=== PATIENT | male | born 1945 | race Caucasian/White ===

== ENCOUNTER 2023-06-20 14:35 | Outpatient (AMB) | payer MEDICARE, SELFPAY ==
--- NOTE | 2023-06-20 14:47 | HO.NEPHOV ---
HPI HPI Comments History of Present Illness Details I had the privilege of seeing Joe in follow-up of his CKD on a backdrop of diabetes mellitus, hypertension vascular disease. He has not lost a significant amount of weight. He claims to have good blood sugar control. His blood pressure has been at goal. He is on Jardiance among other medications which he is tolerating well. He has no orthostatic symptoms. He denies any chest pain, shortness of breath, proximal nocturnal dyspnea, pedal edema or urinary symptoms. He tries to maintain good hydration. He is avoiding nonsteroidal anti-inflammatories. He did not have any specific complaints at the time of this office visit. REPLACED BY [facility] Medical History (Updated 06/23/23 @ 07:29 by Hernan Mehta MD) Sleep apnea Diabetes mellitus Hypertension Surgical History (Updated 06/20/23 @ 15:00 by Jeannine Salazar MA) Hx of appendectomy Hx of CABG H/O shoulder replacement History of back surgery History of knee replacement Family History (Updated 06/20/23 @ 15:02 by Jeannine Salazar MA) Mother Cancer Paternal Grandfather Heart disease Maternal Grandfather Heart disease Brother Hx of CABG Social History (Updated 06/20/23 @ 15:02 by Jeannine Salazar MA) Alcohol intake: never Patient Tobacco Use Status: Never used Tobacco Vital Signs 06/20/23 14:50 Height 5 ft 7 in Weight 218 lb BMI 34.1 BP 102/54 L Blood Pressure Location Lt brachial Position Sitting Pulse 61 Pulse Source Pulse Oximeter Physical Exam Vital Signs: Last Vital Signs Pulse 61 06/20/23 14:50 BP 102/54 L 06/20/23 14:50 BMI result Body Mass Index 34.1 Const General: comfortable and no acute distress Orientation/consciousness: patient oriented x3 HEENT Head: Yes normocephalic Mouth: Normal oral and palatal mucosa present Eyes EOM: EOMs intact bilaterally Neck Neck: Yes supple Resp Auscultation: clear to auscultation bilaterally Cardio Jugular venous distension: no JVD Rate: regular rate GI Palpation (GI): Soft to palpation Auscultation: normal bowel sounds General: Yes no CVA tenderness Back/Spine/Pelvis Back: no CVA tenderness Skin General skin exam: no rashes or lesions noted Neuro General: patient oriented x3 and moves all extremities Extrem General: Yes no pedal edema Assessment & Plan Assessment & Plan (1) CKD (chronic kidney disease) stage 3, GFR 30-59 ml/min: Code(s): N18.30 - Chronic kidney disease, stage 3 unspecified Qualifiers: Chronic kidney disease stage 3 subtype: stage 3a (GFR 45-59) Qualified Code(s): N18.31 - Chronic kidney disease, stage 3a Plan Joe has stage III CKD at baseline. His renal functions are currently stable. His blood pressure is at goal. His blood sugar is better controlled. He is on Jardiance which is tolerating well. He has no orthostatic symptoms on lisinopril. He is tolerating statins. He maintains good hydration. He needs to lose some weight. He should avoid nonsteroidals. I did not make any medication changes today. Follow-up blood work and urine studies ordered. Follow-up appointment given. No medications refilled today. Answered all questions. Orders: Orders Blood Urea Nitrogen 06/20/23 N18.30 - Chronic kidney disease, stage 3 unspecified Electrolytes 06/20/23 N18.30 - Chronic kidney disease, stage 3 unspecified Creatinine 06/20/23 N18.30 - Chronic kidney disease, stage 3 unspecified Protein Creatinine Ratio, Ur 06/20/23 N18.30 - Chronic kidney disease, stage 3 unspecified Coding Level of Care Code Est Pt Level 3 (30469) Diagnoses Stage 3a chronic kidney disease N18.31 Chronic kidney disease stage 3 subtype: stage 3a (GFR 45-59) Results Reviewed Nephrology Results: No Data to Display
[2023-06-20 14:50] VITALS: BP 102/54; PULSE 61; BMI 34.1
== END 2023-06-20 15:41 | disposition home or self-care (01) ==
PROVIDERS: Visit Provider Internal Medicine Nephrology
DX: N18.31 Chronic kidney disease, stage 3a (principal)
CPT/HCPCS: 99213

== ENCOUNTER → 2023-06-20 14:35 | Outpatient (BNVA) | payer MEDICARE, SELFPAY | PROVIDERS: Visit Provider Internal Medicine Nephrology | DX: N18.31 Chronic kidney disease, stage 3a (principal) | CPT/HCPCS: 99212 ==

== ENCOUNTER 2024-02-20 15:21 | Outpatient (AMB) | payer MEDICARE, SELFPAY ==
--- NOTE | 2024-02-20 15:40 | HO.NEPHOV_ITS ---
Vital Signs 02/20/24 15:41 Height 5 ft 7 in Weight 219 lb BMI 34.3 BP 122/68 Blood Pressure Location Rt brachial Position Sitting Pulse 65 Pulse Source Pulse Oximeter Pulse Oximetry (%) 96 Oxygen Delivery Method Room Air Intake Visit Reasons: 8 Months/ Conf Industrial Custodian Required: No Accompanied by: Self / Same As Patient Allergies latex Allergy (Verified 02/20/24 15:44) Unknown Nbfhysw-KIN-OdR Reductase Inhibitor Allergy (Verified 02/20/24 15:44) Unknown Sulfa (Sulfonamide Antibiotics) Allergy (Verified 02/20/24 15:44) Unknown HPI Comments Details: I had the privilege of seeing Joe in follow-up of his CKD on a backdrop of diabetes mellitus, hypertension vascular disease. He has not lost a significant amount of weight. He has had an AICD done recently. He claims to have good blood sugar control. His blood pressure has been at goal. He is on Jardiance among other medications which he is tolerating well. He has no orthostatic symptoms. He denies any chest pain, shortness of breath, proximal nocturnal dyspnea, pedal edema or urinary symptoms. He tries to maintain good hydration. He is avoiding nonsteroidal anti-inflammatories. He did not have any specific complaints at the time of this office visit. [facility] Medical History (Updated 06/23/23 @ 07:29 by Hernan Mehta MD) Sleep apnea Diabetes mellitus Hypertension Surgical History Hx of appendectomy Hx of CABG H/O shoulder replacement History of back surgery History of knee replacement Family History Mother Cancer Paternal Grandfather Heart disease Maternal Grandfather Heart disease Brother Hx of CABG Social History Alcohol intake: never Patient Tobacco Use Status: Never used Tobacco Review of Systems Const All systems reviewed & are unremarkable except as noted in HPI and below Physical Exam Vital Signs: Last Vital Signs Pulse 65 02/20/24 15:41 BP 122/68 02/20/24 15:41 Pulse Ox 96 02/20/24 15:41 Oxygen Delivery Method Room Air 02/20/24 15:41 BMI result Body Mass Index 34.3 Const General: comfortable and no acute distress Orientation/consciousness: patient oriented x3 HEENT Head: Yes normocephalic Mouth: Normal oral and palatal mucosa present Eyes EOM: EOMs intact bilaterally Neck Neck: Yes supple Resp Auscultation: clear to auscultation bilaterally Cardio Jugular venous distension: no JVD Rate: regular rate GI Palpation (GI): Soft to palpation Auscultation: normal bowel sounds General: Yes no CVA tenderness Back/Spine/Pelvis Back: no CVA tenderness Skin General skin exam: no rashes or lesions noted Neuro General: patient oriented x3 and moves all extremities Extrem General: Yes no pedal edema Results Reviewed Nephrology Results: No Data to Display Assessment & Plan Assessment & Plan (1) CKD (chronic kidney disease) stage 3, GFR 30-59 ml/min: Code(s): N18.30 - Chronic kidney disease, stage 3 unspecified Category: Medical Qualifiers: Chronic kidney disease stage 3 subtype: stage 3a (GFR 45-59) Qualified Code(s): N18.31 - Chronic kidney disease, stage 3a Plan Joe has stage III CKD at baseline. His renal functions are currently stable. His blood pressure is at goal. His blood sugar is better controlled. He is on Jardiance which is tolerating well. He has no orthostatic symptoms on lisinopril. He is tolerating statins. He maintains good hydration. He needs to lose some weight. He should avoid nonsteroidals. I did not make any medication changes today. Follow-up blood work and urine studies ordered. Follow-up appointment given. No medications refilled today. Answered all questions. Orders: Orders Creatinine Today N18.31 - Chronic kidney disease, stage 3a Blood Urea Nitrogen Today N18.31 - Chronic kidney disease, stage 3a Calcium Today N18.31 - Chronic kidney disease, stage 3a Protein Creatinine Ratio, Ur Today N18.31 - Chronic kidney disease, stage 3a Electrolytes Today N18.31 - Chronic kidney disease, stage 3a Coding Level of Care Code Est Pt Level 4 (95066) Diagnoses Stage 3a chronic kidney disease N18.31 Chronic kidney disease stage 3 subtype: stage 3a (GFR 45-59)
[2024-02-20 15:41] VITALS: BP 122/68; PULSE 65; O2SAT 96; BMI 34.3
== END 2024-02-20 16:09 | disposition home or self-care (01) ==
PROVIDERS: PCP Internal Medicine; Visit Provider Internal Medicine Nephrology
DX: N18.31 Chronic kidney disease, stage 3a (principal)
CPT/HCPCS: 99214

== ENCOUNTER → 2024-02-20 15:21 | Outpatient (BNVA) | payer MEDICARE, SELFPAY | PROVIDERS: PCP Internal Medicine; Visit Provider Internal Medicine Nephrology | DX: E11.22 Type 2 diabetes mellitus with diabetic chronic kidney disease (principal); I12.9 Hypertensive chronic kidney disease with stage 1 through stage 4 chronic kidney disease, or unspecified chronic kidney disease; N18.31 Chronic kidney disease, stage 3a | CPT/HCPCS: 99212 ==

== ENCOUNTER 2025-03-09 10:14 | Outpatient (AMB) | payer MEDICARE, SELFPAY ==
--- OUTSIDE RECORDS SUMMARY | 2025-03-09 06:44 | XMS_ITS | Continuity of Care Document ---
Author Name [facility] Organization [facility] Care Team Providers Care All Around Patternmaker Name Role Phone [facility] Unavailable Unavailable Problems Combined list of problems from Department of Defense and Veterans Affairs facilities. It does not include entries that were removed or entered in error. 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 [facility] Coronary arteriosclerosis Active Condition [facility] Diabetes mellitus type 2 Active Condition [facility] Exposure to potentially hazardous substance Active Condition [facility] Hyperlipidemia Active Condition [facility] Hypertension Active Condition [facility] Hypothyroidism Active Condition [facility] 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 [facility] Obesity (SCT [id number]) Active Condition [facility] 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 [facility] Diagnosis: ICD-10-CM Z02.89 Encounter for other administrative examinations Active Diagnosis RAYMUNDO SCraig KRYSTINA [facility] Diagnosis: ICD-10-CM C91.A1 Mature B-cell leukemia Burkitt-type, in remission Active Diagnosis [facility] Diagnosis: ICD-10-CM I25.9 Chronic ischemic heart disease, unspecified Active Diagnosis [place] [place] [facility] Diagnosis: ICD-10-CM I25.10 Athscl heart disease of zuni coronary artery w/o ang pctrs Active Diagnosis [facility] Diagnosis: ICD-10-CM E11.9 Type 2 diabetes mellitus without complications Active Diagnosis [facility] Diagnosis: ICD-10-CM E11.42 Type 2 diabetes mellitus with diabetic polyneuropathy Active Diagnosis [facility] Medications Combined list of outpatient medications from Department of Defense and Veterans Affairs facilities.Medications provided include 1) outpatient medications from the last 15 months, and 2) patient-reported medications. Medication Details Route Status Patient Instructions Prescription Expires Prescription Number Last Dispense Date Ordering Provider Order Date Order Qty Source ALBUTEROL 90MCG/ACTUA T (CFC-F) INHL,ORAL,8 .5GM DOSE COUNTER INHALE 2 PUFFS BY MOUTH EVERY 4 HOURS NEEDED RESPIR ATORY (INHAL ATION) ACTIVE ROBLES,D MICHELLE HCOWDHURY 2024 [facility] ASCORBIC ACID 500MG TAB TAKE ONE TABLET BY MOUTH ONCE DAILY ORAL ACTIVE ROBLES,D MICHELLE CHOWDHURY 2023 [facility] CARVEDILOL 12.5MG TAB TAKE ONE TABLET BY MOUTH TWICE DAILY ORAL ACTIVE [place]UEL [place] 2020 [facility] CETIRIZINE HCL 10MG TAB TAKE ONE TABLET BY MOUTH ONCE DAILY ORAL ACTIVE ROBLES,D MICHELLE CHOWDHURY 2024 [facility] CHOLECALCIF STUART 25MCG (1,000UNIT) TAB TAKE ONE TABLET BY MOUTH ONCE DAILY ORAL ACTIVE ROBLES,D MICHELLE CHOWDHURY 2024 [facility] DAPAGLIFLOZ IN 10MG TAB TAKE ONE TABLET BY MOUTH EVERY MORNING ORAL ACTIVE ROBLESD MICHELLE CHOWDHURY 2024 [facility] DICYCLOMINE HCL 20MG TAB TAKE ONE TABLET BY MOUTH ONCE DAILY ORAL ACTIVE ROBLES,D MICHELLE CHOWDHURY 2024 [facility] DUTASTERIDE 0.5MG CAP TAKE 1 CAPSULE BY MOUTH ONCE DAILY ORAL ACTIVE ROBLES,D MICHELLE CHOWDHURY 2024 [facility] FERROUS SO4 325MG TAB TAKE ONE TABLET BY MOUTH ONCE DAILY ORAL ACTIVE ROBLESD MICHELLE CHOWDHURY 2023 [facility] FLUTICASONE 100MCG/ROSALEE NTEROL 25MCG INHL,ORAL,3 0D INHALE 1 PUFF BY MOUTH ONCE DAILY RESPIR ATORY (INHAL ATION) ACTIVE ROBLES,D MICHELLE CHOWDHURY 2024 [facility] FLUTICASONE PROPIONATE 50MCG/SPRAY SOLN,NASAL, 16GM INSTILL 2 SPRAYS INTO EACH NOSTRIL ONCE DAILY NASAL ACTIVE STEENBERG EN,MANUEL A 2020 [facility] FUROSEMIDE 20MG TAB TAKE ONE TABLET BY MOUTH NEEDED ORAL ACTIVE STEENBERG EN,MANUEL A 2020 [facility] LEVOTHYROXI NE NA 175MCG TAB (SYNTHROID) TAKE ONE TABLET BY MOUTH ONCE DAILY ORAL ACTIVE STEENBERG EN,MANUEL A 2020 [facility] LISINOPRIL 10MG TAB TAKE ONE TABLET BY MOUTH ONCE DAILY ORAL ACTIVE ROBLES,D MICHELLE CHOWDHURY 2024 [facility] MELATONIN 5MG CAP/TAB TAKE ONE CAPSULE/ TABLET BY MOUTH ONCE DAILY ORAL ACTIVE STEENBERG EN,MANUEL A 2020 [facility] METFORMIN HCL 1000MG TAB TAKE ONE TABLET BY MOUTH TWICE DAILY ORAL ACTIVE STEENBERG EN,MANUEL A 2020 [facility] RIVAROXABAN 20MG TAB TAKE ONE TABLET BY MOUTH ONCE DAILY ORAL ACTIVE STEENBERG EN,MANUEL A 2020 [facility] ROSUVASTATI N CA 20MG TAB TAKE ONE-HALF TABLET BY MOUTH ONCE DAILY ORAL ACTIVE ROBLES,D MICHELLE CHOWDHURY 2024 [facility] TAMSULOSIN HCL 0.4MG CAP TAKE 1 CAPSULE BY MOUTH EVERY 24 HOURS ORAL ACTIVE STEENBERG EN,MANUEL A 2020 [facility] VITAMIN B COMPLEX CAP TAKE 1 CAPSULE BY MOUTH ONCE DAILY ORAL ACTIVE STEENBERG EN,MANUEL A 2020 [facility] Allergies, Adverse Reactions, Alerts Combined list of allergies from Department of Defense and Veterans Affairs facilities. It does not include entries that were removed or entered in error. Substance Category Reaction Severity Reaction type Status Date Reported Comments Source [place] Propensity to adverse reactions to drug (finding) active 1 [facility] [place] MORPHINE Propensity to adverse reactions to drug (finding) active 1 [facility] Propensity to adverse reactions to drug (finding) active [facility] Immunizations Combined list of available immunizations from the Department of Defense and Veterans Affairs facilities. Immunization Series Date Given Administered By Site Reaction Lot Number CVX Code Drug Feather Mixer Status Comments Source COVID-19 (MODERNA), MRNA, LNP-S, PF, 50 MCG/0.5 ML (AGES 12+ YEARS) 2024 312 complet ed HISTORICA L INFORMATI ON - FROM OTHER PROVIDER, [facility] INFLUENZA, UNSPECIFIED FORMULATION 2023 88 complet ed HISTORICA L INFORMATI ON - FROM PATIENT'S RECALL, [facility] COVID-19 (PFIZER), MRNA, LNP-S, PF, BRITTNY-SUCROSE, 30 MCG/0.3 ML (AGES 12+ YEARS) 2023 309 complet ed HISTORICA L INFORMATI ON - FROM OTHER PROVIDER, [facility] COVID-19 (MODERNA), MRNA, LNP-S, PF, 50 MCG/0.5 ML (AGES 12+ YEARS) 2023 312 complet ed HISTORICA L INFORMATI ON - FROM OTHER PROVIDER, [facility] RSV, BIVALENT, PROTEIN SUBUNIT RSVPREF, DILUENT RECONSTITUTED , 0.5 ML, PF 2022 305 complet ed HISTORICA L INFORMATI ON - FROM OTHER PROVIDER, [facility] ZOSTER RECOMBINANT 1 2021 187 complet ed HISTORICA L INFORMATI ON - FROM OTHER REGISTRY, [facility] COVID-19 (MODERNA), MRNA, LNP-S, BIVALENT BOOSTER, PF, 50 MCG/0.5 ML OR 25MCG/0.25 ML DOSE 2021 229 complet ed Booster for Series, HISTORICA L INFORMATI ON - FROM OTHER REGISTRY, [facility] INFLUENZA, UNSPECIFIED FORMULATION 2021 88 complet ed Booster for Series, HISTORICA L INFORMATI ON - FROM OTHER REGISTRY, [facility] COVID-19 (MODERNA), MRNA, LNP-S, PF, 100 MCG/0.5ML DOSE OR 50 MCG/0.25ML DOSE 2021 207 complet ed Booster for Series, HISTORICA L INFORMATI ON - FROM OTHER PROVIDER, [facility] INFLUENZA, UNSPECIFIED FORMULATION 2020 88 complet ed [facility] COVID-19 (MODERNA), MRNA, LNP-S, PF, 100 MCG/0.5ML DOSE OR 50 MCG/0.25ML DOSE 3 2020 207 complet ed [facility] TDAP 2020 115 complet ed HISTORICA L INFORMATI ON - FROM OTHER PROVIDER, [facility] COVID-19 (MODERNA), MRNA, LNP-S, PF, 100 MCG/0.5ML DOSE OR 50 MCG/0.25ML DOSE 2 2020 207 complet ed [facility] ZOSTER RECOMBINANT 1 2018 187 complet ed HISTORICA L INFORMATI ON - FROM OTHER REGISTRY, [facility] ZAR[facility] Vital Signs Combined list of inpatient and outpatient Vital Signs from Department of Defense and Veterans Affairs, ranging from 12 months to all on record, depending upon the facility. Vital Sign Value Date Comments Source SYSTOLIC BLOOD PRESSURE 100 10/19/19 25 09:53:15 [facility] DIASTOLIC BLOOD PRESSURE 58 025 09:53:15 [facility] PULSE OXIMETRY 95 10/18/2024 09:53:15 [facility] WEIGHT 207 10/18/2024 09:53:15 [facility] BMI 32 kg/m2 10/18/2024 09:53:15 [facility] PAIN 0 10/18/2024 09:53:15 [facility] HEIGHT 67 10/18/2024 09:53:15 [facility] TEMPERATURE 97.5 10/18/2024 09:53:15 [facility] PULSE 61 10/18/2024 09:53:15 [facility] RESPIRATION 16 10/18/2024 09:53:15 [facility] Encounters Combined list of: 1) Encounters from Department of Veterans Affairs facilities going backup to the last 18 months, not all VA inpatient encounters are included; 2) Encounters from the Department of [facility] [place] facilities going backup to 280 months. Location Location Details Encounter Type Encounter Number Reason For Visit Attending Provider ADM Date DC Date Status Disposition Source [facility] Outpatient Encounter [id number] 09/15 [facility] OFFICE [place] EST [place] 40 MIN [id number] Diagnos is: ICD-10- CM E11.9 Type 2 diabete s mellitu s without complic ations ABHIJIT ROBLES 10/20 [facility] FEE [id number] Diagnos is: ICD-10- CM E11.42 Type 2 diabete s mellitu s with diabeti c polyneu ropathy ABHIJIT ROBLES 10/20 [facility] Outpatient Encounter [id number] 11/04 [facility] [place] Out[facility] Encounter [id number] 03/07 [facility] Out[facility] Encounter [id number] 03/25 [facility] Out[facility] En[facility] [id number] 08/31 [facility] En[facility] [id number] 09/03 [facility] En[facility] [id number] 09/13 [facility] Out[facility] En[facility] [id number] 09/14 [facility] Out[facility] En[facility] [id number] 10/11 [facility] OFFICE O/P EST HI 40 MIN [id number] Diagnos is: ICD-10- CM I25.9 Chronic ischemi c heart disease , unspeci fied MARGARET,DA VID TRENTON 10/18 [facility] FEE [id number] Diagnos is: ICD-10- CM I25.10 Athscl heart disease of zuni coronar y artery w/o ang pctrs ROBLES,DA VID TRENTON 10/18 [facility] OFFICE O/P EST HI 40 MIN [id number] Diagnos is: ICD-10- CM C91.A1 Mature B-cell leukemi a Burkitt -type, in remissi on MARGARET,DA VID TRENTON 10/18 [facility] RAYMUNDO FLAHERTY [facility] Outpatient Encounter [id number] Diagnos is: ICD-10- CM Z02.89 Encount er for other adminis trative examina Seema Deng 11/25 RAYMUNDO Whelan [facility] Social History Combined list of available smoking, tobacco, and other social history from Department of Defense and Veterans Affairs facilities. Social History Type Response Date Comment [facility] e Tobacco smoking status NHIS VA-TOBACCO NEVER USED 10/21/19 [facility] History of tobacco use VA-TOBACCO NEVER USED 09/12/2022 [facility] History of tobacco use VA-TOBACCO NEVER USED 09/14/2021 [facility] History of tobacco use VA-TOBACCO NEVER USED 08/30/2020 [facility]
--- NOTE | 2025-03-09 10:41 | HO.NEPHOV_ITS ---
Vital Signs 03/09/25 10:46 Height 5 ft 7 in Weight 209 lb BMI 32.7 BP 100/60 Blood Pressure Location Rt brachial Position Sitting Pulse 56 Pulse Source Pulse Oximeter Pulse Oximetry (%) 95 Oxygen Delivery Method Room Air Intake Visit Reasons: CKD-LVM Funeral Home Attendant Required: No Accompanied by: Spouse Allergies latex Allergy (Verified 03/09/25 10:46) Unknown [id number] Reductase Inhibitor Allergy (Verified 03/09/25 10:46) Unknown Sulfa (Sulfonamide Antibiotics) Allergy (Verified 03/09/25 10:46) Unknown HPI Comments Details: I had the privilege of seeing Joe in follow-up of his CKD on a backdrop of diabetes mellitus, hypertension vascular disease. He has not lost a significant amount of weight. He has had an AICD . He claims to have good blood sugar control. His blood pressure has been at goal. He is on Jardiance among other medications which he is tolerating well. He has no orthostatic symptoms. He denies any chest pain, shortness of breath, proximal nocturnal dyspnea, pedal edema or urinary symptoms. He tries to maintain good hydration. He is avoiding nonsteroidal anti-inflammatories. He did not have any specific complaints at the time of this office visit. [facility] Medical History (Updated 06/23/23 @ 07:29 by Hernan Mehta MD) Sleep apnea Diabetes mellitus Hypertension Surgical History Hx of appendectomy Hx of CABG H/O shoulder replacement History of back surgery History of knee replacement Family History Mother Cancer Paternal Grandfather Heart disease Maternal Grandfather Heart disease Brother Hx of CABG Social History Alcohol intake: never Patient Tobacco Use Status: Never used Tobacco Review of Systems Const All systems reviewed & are unremarkable except as noted in HPI and below Physical Exam Const General: comfortable and no acute distress Orientation/consciousness: patient oriented x3 HEENT Head: Yes normocephalic Mouth: Normal oral and palatal mucosa present Eyes EOM: EOMs intact bilaterally Neck Neck: Yes supple Resp Auscultation: clear to auscultation bilaterally Cardio Jugular venous distension: no JVD Rate: regular rate GI Palpation (GI): Soft to palpation Auscultation: normal bowel sounds General: Yes no CVA tenderness Back/Spine/Pelvis Back: no CVA tenderness Skin General skin exam: no rashes or lesions noted Neuro General: patient oriented x3 and moves all extremities Extrem General: Yes no pedal edema Assessment & Plan Assessment & Plan (1) CKD (chronic kidney disease) stage 3, GFR 30-59 ml/min: Code(s): N18.30 - Chronic kidney disease, stage 3 unspecified Category: Medical Qualifiers: Chronic kidney disease stage 3 subtype: stage 3a (GFR 45-59) Qualified Code(s): N18.31 - Chronic kidney disease, stage 3a Plan Joe has stage III CKD at baseline. His renal functions are currently stable. His blood pressure is at goal. His blood sugar is better controlled. He is on Farxiga which he is tolerating well. He has no orthostatic symptoms on lisinopril. He is tolerating statins. He maintains good hydration. He needs to lose some weight. He should avoid nonsteroidals. I did not make any medication changes today. Follow-up blood work and urine studies ordered. Follow-up appointment given. No medications refilled today. Answered all questions. Orders: Orders Creatinine 1 Year N18.31 - Chronic kidney disease, stage 3a Electrolytes 1 Year N18.31 - Chronic kidney disease, stage 3a Calcium 1 Year N18.31 - Chronic kidney disease, stage 3a UA and rflx microscopic 1 Year N18.31 - Chronic kidney disease, stage 3a Blood Urea Nitrogen 1 Year N18.31 - Chronic kidney disease, stage 3a Protein Creatinine Ratio, Ur 1 Year N18.31 - Chronic kidney disease, stage 3a Coding Level of Care Code Est Pt Level 4 (35985) Diagnoses Stage 3a chronic kidney disease N18.31 Chronic kidney disease stage 3 subtype: stage 3a (GFR 45-59)
[2025-03-09 10:46] VITALS: BP 100/60; PULSE 56; O2SAT 95; BMI 32.7
--- OUTSIDE RECORDS SUMMARY | 2025-03-09 11:45 | XMS_ITS | Clinical Summary ---
Author Organization [facility] Address [address] [place] [address] Phone Care Team Providers Care Process Expert Name Role Phone Talib Thomas MD Primary Care Provider [phone] Allergies Active Allergy Reactions Criticality Noted Date Comments Statins Other (see comments) 06/20/2021 Medications Fluticasone Furoate-Vilante rol (Breo Ellipta) 100-25 MCG/INH aerosol powder Active Ascorbic Acid (Vitamin C) 500 MG capsule Take 1 tablet by mouth 1 (one) time each day Active acetaminophen (TYLENOL) 500 MG tablet Take 2 tablets by mouth 2 (two) times a day Active aspirin (ST ZULEMA) 81 MG EC tablet Take 1 tablet by mouth 1 (one) time each day Active carvedilol (COREG) 12.5 MG tablet Take 1 tablet by mouth 2 (two) times a day Active cholecalciferol (VITAMIN D-3) 25 MCG (1000 UT) capsule Take 1 capsule by mouth 1 (one) time each day Active diphenhydrAMINE (BENADRYL) 25 MG capsule Active docusate sodium (COLACE) 100 MG capsule Take 1 capsule by mouth 2 (two) times a day Active dutasteride (AVODART) 0.5 MG capsule Take 1 capsule by mouth 1 (one) time each day Active esomeprazole (NexIUM) [address] capsule Take 1 capsule by mouth 1 (one) time each day Active fluticasone HFA (Flovent HFA) 110 MCG/ACT inhaler Active furosemide (LASIX) 20 MG tablet Take 1 tablet by mouth 1 (one) time each day Active levothyroxine (SYNTHROID, LEVOTHROID) 200 MCG tablet Take 1 tablet by mouth 1 (one) time each day Active Lutein 6 MG capsule Take 1 capsule by mouth 1 (one) time each day Active Melatonin 5 MG tablet Take 1 tablet by mouth at bed time Active metFORMIN (GLUCOPHAGE) 1000 MG tablet Take 1 tablet by mouth 2 (two) times a day Active rivaroxaban (XARELTO) 20 MG tablet Take 1 tablet by mouth 1 (one) time each day Active psyllium (METAMUCIL) 0.52 g capsule Activ e rosuvastatin (CRESTOR) 5 MG tablet Take 0.5 tablets by mouth 1 (one) time each day Active tamsulosin (FLOMAX) 0.4 MG 24 hr capsule Take 1 capsule by mouth 1 (one) time each day Active levothyroxine (SYNTHROID, LEVOTHROID) 175 MCG tablet Take 1 tablet by mouth 1 (one) time each day 04/30/2022 Active lisinopril 10 MG tablet Take 1 tablet by mouth 1 (one) time each day 05/20/2022 Active Active Problems Problem Noted Date Diagnosed Date Atrial fibrillation 06/26/2023 06/26/2023 Coronary arteriosclerosis 06/26/20232022 Encounter for other administrative examination 1 08/27/2022 06/26/2023 Exposure to potentially hazardous substance 06/0706/26/2023 Hyperlipidemia 06/26/2023 06/26/2023 Hypothyroidism 06/26/2023 06/26/2023 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 06/26/2023 Neuropathy caused by chemical substance 06/26/2006/26/2023 Obesity 06/26/2023 06/26/2023 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 08/27/2022 06/26/2023 Type 2 diabetes mellitus 06/26/2023 023 Acute nontraumatic kidney injury 06/20/2021 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 Hypertensive renal disease 06/20/2021 Chronic kidney disease, stage 2 (mild) Hypertension 06/11/2021 Resolved Problems Problem Noted Date Diagnosed Date Resolved Date Ataxia 06/20/2021 06/20/2021 Disorder of peripheral nervous system 06/20/2021 06/20/2021 Lumbar radiculopathy 06/20/2021 021 Median nerve compression in forearm 06/20/2021 06/20/2021 Ulnar nerve entrapment at elbow 06/20/2021 06/20/2021 Family History Medical History Relation Comments Dementia Father Cancer Mother Heart disease Sibling 1 Kidney disease Sibling 2 younger brother Relation Status Comments Father Mother Sibling 1 Sibling 2 Social History Tobacco Use Types Packs/Day Years Used Date Smoking Tobacco: Never Smokeless Tobacco: Never Tobacco Cessation:Counseling Given: Not Answered Sex and Gender Information Value Date Recorded Sex Assigned at Not on file Legal Sex Male 4:49 PM EST Gender Identity Not on file Sexual Orientation Not on file Last Filed Vital Signs Vital Sign Reading Time Taken Comments Blood Pressure 112/60 06/19/2022 1:25 PM EST Pulse 61 06/19/2022 1:25 PM EST Temperature - - Respiratory Rate - - Oxygen Saturation 98% 06/20/2021 3:00 PM EST Inhaled Oxygen Concentration - - Weight 101 kg (222 lb) 06/19/2022 1:25 PM EST Height 172.7 cm (5' 8 ) 05/12/2020 12:00 PM EST Body Mass Index 33.75 05/12/2020 12:00 PM EST Plan of Treatment Health Maintenance Due Date Last Done Comments Pneumococcal Vaccine: 50+ Years (1 of 2 - PCV) 1964 Diabetes: Hemoglobin A1C 04/28/2023 Diabetes: Ophthalmology Exam 04/28/2023 Diabetes: Pedal Pulse Checked 04/28/2023 Diabetes: Sensory Foot Exam 04/28/2023 Diabetes: Visual Foot Exam 04/28/2023 Influenza Vaccine (#1) 2025 2, 04/06/2021 Hepatitis B Vaccine Aged Out No longe r eligible based on patient's age to complete this topic Insurance Medicare [facility] Medicare [facility] Care Teams Process Expert Relationship Specialty Start Date End Date Talib Thomas MD [address] [facility], [facility] [address] [place] [address] PCP - General Family Medicine 06/20/21
== END 2025-03-09 11:10 | disposition home or self-care (01) ==
LOC: HO.HKA 10:14
PROVIDERS: PCP Internal Medicine; Visit Provider Internal Medicine Nephrology
DX: N18.31 Chronic kidney disease, stage 3a (principal)
CPT/HCPCS: 99214

== ENCOUNTER → 2025-03-09 10:14 | Outpatient (BNVA) | payer MEDICARE, SELFPAY | PROVIDERS: PCP Internal Medicine; Visit Provider Internal Medicine Nephrology | DX: N18.31 Chronic kidney disease, stage 3a (principal) | CPT/HCPCS: 99212 ==